=== PATIENT | female | born 1970 | race Caucasian/White ===

== ENCOUNTER 2016-05-02 10:00 | Inpatient (IN) | payer OTHER ==
[~2016-05-02] VITALS: Ht 170.2 cm; Wt 85.8 kg
[~2016-05-02 10:00] MED LIST: DPKSR/500 PO; HYDROCODONE/ACETAMOPHEN 5/325MG TAB PO PRN; IBUP-1050 PO; TRAMADOL HCL 50 MG TAB PO PRN; TRAZ50TA35 PO; ZLF/100 PO
[2016-05-02] MEDS ORDERED: FENTANYL CITRATE INJ 50 MCG/1 ML 2 ML VIAL IV STA (10:15)
[2016-05-02] MEDS ORDERED: ABL/5 PO (10:25)
[2016-05-02 10:32] LABS: BASO % 0.3 %; BASO ABS # 0.03 K/uL (0-0.2); COMPLETE YES; EOS % 2.2 %; HEMATOCRIT 38.9 % (37-47); IG% 0.6 %; LYMPH % 27.7 %; LYMPH ABS # 2.64 K/uL (1.2-3.4); MEAN CELL VOLUME 91.1 fL (80-100); MEAN CORPUSCULAR HEMOGLOBIN 31.1 pg (25-34); MEAN CORPUSCULAR HGB CONC 34.2 g/dl (32-36); MEAN PLATELET VOLUME 9.3 fL (7.4-10.4); MONO % 7.6 %; NEUT % 61.6 %; PLATELET COUNT 276 K/uL (130-400); RED BLOOD COUNT 4.27 M/uL (4.2-5.4); WHITE BLOOD COUNT 9.52 K/uL (4.8-10.8)
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
[2016-05-02 11:28] LABS: URINE APPEARANCE CLEAR (CLEAR); URINE BILIRUBIN NEG (NEG); URINE COLOR YELLOW; URINE NITRITE NEG (NEG); URINE SPECIFIC GRAVITY 1.002 (1.000-1.030); UROBILINOGEN NEG (NEG)
[2016-05-02] MEDS ORDERED: SODIUM CHLORIDE 0.9% 1000ML 1,000 ML IV STA (11:29)
[2016-05-02] MEDS ORDERED: HYDROmorphone INJ 1 MG/ML SYR IV STA (11:29)
[2016-05-02 11:31] LABS: MANUAL MICROSCOPIC REQUIRED? NO; REVIEW REQ? NO
[2016-05-02 11:33] LABS: ALT/SGPT 38 U/L (12-78); AST/SGOT 23 U/L (15-37); BLOOD UREA NITROGEN 9 mg/dl (7-18); BUN/CREATININE RATIO 10.2 (10-20); CALCIUM 8.7 mg/dl (8.5-10.1); CARBON DIOXIDE 26 mmol/L (21-32); CHLORIDE 112 mmol/L (98-107); CREATININE 0.91 mg/dl (0.60-1.20); GLUCOSE 90 mg/dl (70-99); POTASSIUM 4.4 mmol/L (3.5-5.1); SODIUM 145 mmol/L (136-145)
[2016-05-02 11:42] LABS: ALKALINE PHOSPHATASE 48 U/L (45-117)
[2016-05-02] MEDS ORDERED: GADAVIST IV PRN (13:15)
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
[2016-05-02] MEDS ORDERED: MAGNESIUM HYDROXIDE SUSP 30 ML UDC PO PRN (16:15)
[2016-05-02] MEDS ORDERED: MoRPHine SULFATE 2 MG/ML CARP IV PRN (16:15)
[2016-05-02] MEDS ORDERED: BISACODYL 10 MG SUPP PR PRN (16:15)
[2016-05-02] MEDS ORDERED: ALUMINUM/MAGNESIUM/SIMETH (MAALOX MAX) 30 ML UDC PO PRN (16:15)
[2016-05-02] MEDS ORDERED: DiphenhydrAMINE HCL 50 MG/ML VIAL IV PRN (16:15)
[2016-05-02] MEDS ORDERED: PROMETHAZINE HCL INJ 12.5 MG in SODIUM CHLORIDE 0.9% 50ML 50 ML IV PRN (16:15)
[2016-05-02] MEDS ORDERED: MoRPHine SULFATE 4 MG/ML 1 ML CARP\\VIAL IV PRN (16:15)
[2016-05-02] MEDS ORDERED: ZOLPIDEM TARTRATE 5 MG TAB PO PRN (16:15)
[2016-05-02] MEDS ORDERED: LORAZEPAM 2 MG/ML 1 ML VIAL IV PRN ×2 (16:15)
[2016-05-02] MEDS ORDERED: ONDANSETRON INJ 2 MG/ML 2 ML VIAL IV PRN (16:15)
[2016-05-02] MEDS ORDERED: ACETAMINOPHEN 325 MG TAB PO PRN (16:15)
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
[2016-05-02 17:37] VITALS: BP 107/71; PULSE 70; TEMP 36.5; O2SAT 94; Ht 170.2 cm; Wt 85.8 kg
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
[2016-05-02] MEDS ORDERED: LORAZEPAM INJ 0.5 MG in SYRINGE 0.75 ML IV PRN (18:00)
[2016-05-02] MEDS ORDERED: LORAZEPAM INJ 1 MG in SYRINGE 0.5 ML IV PRN (18:00)
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
[2016-05-02] MEDS ORDERED: INFLUENZA VIRUS QUAD VACCINE 0.5 ML SYR IM. ONE (20:15)
[2016-05-02] MEDS ORDERED: INFLUENZA ADMINISTRATION CHARGE ONE (20:15)
[2016-05-02] MEDS: DOCUSATE SODIUM 100 MG CAP PO SCH (20:34)
[2016-05-02] MEDS: DIVALPROEX 500 MG EXTENDED RELEASE TAB PO SCH (20:34)
[2016-05-03] VITALS (7 sets, daily range): BP systolic 95–126; BP diastolic 63–80; PULSE 71–89; TEMP 36.6–36.9; O2SAT 85–95
[2016-05-03 07:53] LABS: BASO % 0.3 %; BASO ABS # 0.03 K/uL (0-0.2); COMPLETE YES; EOS % 1.7 %; HEMATOCRIT 33.3 % (37-47); IG% 0.2 %; LYMPH % 19.1 %; LYMPH ABS # 1.84 K/uL (1.2-3.4); MEAN CELL VOLUME 88.8 fL (80-100); MEAN CORPUSCULAR HEMOGLOBIN 30.9 pg (25-34); MEAN CORPUSCULAR HGB CONC 34.8 g/dl (32-36); MEAN PLATELET VOLUME 8.5 fL (7.4-10.4); MONO % 7.8 %; NEUT % 70.9 %; PLATELET COUNT 227 K/uL (130-400); RED BLOOD COUNT 3.75 M/uL (4.2-5.4); WHITE BLOOD COUNT 9.63 K/uL (4.8-10.8)
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
[2016-05-03 08:08] LABS: PROTHROMBIN TIME (PATIENT) 10.3 SECONDS (9.0-12.0)
[2016-05-03 08:34] LABS: CALCIUM 8.3 mg/dl (8.5-10.1); CREATININE 0.82 mg/dl (0.60-1.20); POTASSIUM 4.3 mmol/L (3.5-5.1)
[2016-05-03] MEDS: DIVALPROEX 500 MG EXTENDED RELEASE TAB PO SCH ×2 (09:50→21:07)
[2016-05-03] MEDS: ARIPIprazole TAB 5 MG TAB PO SCH (09:50)
[2016-05-03] MEDS: SERTRALINE HCL 100 MG TAB PO SCH (09:51)
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
[2016-05-03] MEDS: DOCUSATE SODIUM 100 MG CAP PO SCH ×2 (10:55→21:00)
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
[2016-05-03] MEDS ORDERED: ENOXAPARIN 40 MG/0.4 ML SYR SQ ONE (21:15)
[2016-05-04 07:42] VITALS: BP 98/60; PULSE 79; TEMP 36.3; O2SAT 94
[2016-05-04] MEDS: DIVALPROEX 500 MG EXTENDED RELEASE TAB PO SCH (09:23)
[2016-05-04] MEDS: ARIPIprazole TAB 5 MG TAB PO SCH (09:23)
[2016-05-04] MEDS: SERTRALINE HCL 100 MG TAB PO SCH (09:23)
[2016-05-04 15:00] VITALS: BP 108/72; PULSE 87; TEMP 36.8; O2SAT 94
[2016-05-04] MEDS ORDERED: ULT50X PO (15:13)
[2016-05-04] MEDS ORDERED: IBUP-1450 PO (15:13)
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
[2016-05-04] MEDS ORDERED: PRLSR20 PO (15:28)
[2016-05-04 15:43] VITALS: BP 108/72; PULSE 87; TEMP 36.8; O2SAT 94
[2016-05-04] MEDS: DOCUSATE SODIUM 100 MG CAP PO SCH (15:55)
[2016-05-04] MEDS ORDERED: OXYC1TAB3 PO (16:21)
[2016-05-04 16:30] VITALS: O2SAT 94
[2016-05-04] MEDS ORDERED: ENOXAPARIN 40 MG/0.4 ML SYR SQ SCH (21:00)
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
== END 2016-05-04 19:00 | disposition home health service (06) | DRG 552 ==
LOC: ENRESERVDT → ENRESERVTM → EDBD 10:00 → C.ED 10:02 → C.MSN 16:13
PROVIDERS: ADMIT Hospitalist; ATTEND Internal Medicine
PROC: 0T9B7ZZ Drainage of Bladder, Via Natural or Artificial Opening (ICD-10-PCS; principal; 2016-05-02)
DX: S32.018A Other fracture of first lumbar vertebra, initial encounter for closed fracture (principal); R20.2 Paresthesia of skin; R33.9 Retention of urine, unspecified; G40.909 Epilepsy, unspecified, not intractable, without status epilepticus; F32.9 Major depressive disorder, single episode, unspecified; F17.210 Nicotine dependence, cigarettes, uncomplicated; V48.5XXA Car driver injured in noncollision transport accident in traffic accident, initial encounter; Y92.410 Unspecified street and highway as the place of occurrence of the external cause; Z79.899 Other long term (current) drug therapy; Z80.7 Family history of other malignant neoplasms of lymphoid, hematopoietic and related tissues; Z82.49 Family history of ischemic heart disease and other diseases of the circulatory system; Z83.6 Family history of other diseases of the respiratory system

== ENCOUNTER → 2017-10-14 | Outpatient (CLI) | payer OTHER ==
[~2017-10-14] MED LIST changes: -HYDROCODONE/ACETAMOPHEN 5/325MG TAB PO PRN; -IBUP-1050 PO; -TRAMADOL HCL 50 MG TAB PO PRN; -TRAZ50TA35 PO; -ZLF/100 PO
--- NOTE | 2017-10-14 14:45 | DIAGNOSTIC IMAGING REPORT ---
CHEST 2 VIEWS ROUTINE HISTORY: 47 years-old Female Z01.818 Preoperative [id number] preoperative exam. No acute chest complaints COMPARISON: Chest radiograph 08/14/2017 TECHNIQUE: PA and lateral views of the chest FINDINGS: Cardiomediastinal and hilar silhouettes are within normal limits. No pneumothorax, pleural effusion, focal airspace consolidation or overt pulmonary edema. Bones of the chest appear grossly intact. IMPRESSION: No acute process. The above report was generated using voice recognition software. It may contain grammatical, syntax or spelling errors. Electronically signed by: Savage Chisholm M.D. 10/14/2017 2:44 PM Dictated Date/Time: 10/14/2017 2:43 PM
[2017-10-14 16:36] LABS: BASO % 0.4 %; BASO ABS # 0.04 K/uL (0-0.2); EOS % 1.5 %; EOS ABS # 0.15 K/uL (0-0.5); HEMOGLOBIN 13.9 g/dL (12.0-16.0); IG# 0.02 K/uL (0.00-0.02); LYMPH % 23.7 %; LYMPH ABS # 2.39 K/uL (1.2-3.4); MEAN CELL VOLUME 91.1 fL (80-100); MEAN CORPUSCULAR HEMOGLOBIN 30.9 pg (25-34); MEAN CORPUSCULAR HGB CONC 33.9 g/dl (32-36); MEAN PLATELET VOLUME 10.3 fL (7.4-10.4); MONO % 7.1 %; MONO ABS # 0.72 K/uL (0.11-0.59); NEUT % 67.1 %; NEUT ABS # 6.75 K/uL (1.4-6.5); PLATELET COUNT 268 K/uL (130-400); RED CELL DISTRIBUTION WIDTH CV 13.1 % (11.5-14.5); RED CELL DISTRIBUTION WIDTH SD 43.6 fL (36.4-46.3); WHITE BLOOD COUNT 10.07 K/uL (4.8-10.8)
[2017-10-14 16:41] LABS: PTT PATIENT 26.6 SECONDS (21.0-31.0)
[2017-10-14 16:58] LABS: POTASSIUM 3.8 mmol/L (3.5-5.1)
== END | disposition home or self-care (01) ==
LOC: C.RAD 14:07
DX: Z01.818 Encounter for other preprocedural examination (principal)

== ENCOUNTER → 2017-10-23 | Day surgery (SDC) | payer OTHER ==
[2017-10-14 11:10] VITALS: Ht 170.2 cm; Wt 67.7 kg
[~2017-10-23] VITALS: Ht 170.2 cm; Wt 67.7 kg
[~2017-10-23] MED LIST changes: +ATROPINE SULFATE 0.1 MG/ML 5ML SYR IV PRN; +BACITRACIN OINT 15 GM TUBE ONE; +CEFAZOLIN 2000MG IV PUSH 15 ML IV SCH; +DEXAMETHASONE SOD INJ 4 MG/ML VIAL ONE; +EpHEDrine SULFATE INJ 50 MG/ML AMP IV PRN; +FENTANYL CITRATE INJ 50 MCG/1 ML 2 ML VIAL IV PRN; +FENTANYL CITRATE INJ 50 MCG/1 ML 2 ML VIAL ONE; +FLUMAZENIL 0.1 MG/1 ML 10 ML VIAL IV PRN; +HYDROCODONE/ACETAMIN 5/325MG TAB PO PRN; +HYDROmorphone INJ 2 MG/ML SYR/VIAL IV PRN; +LABETALOL HCL IV 5 MG/ML 20ML IV PRN; +LACTATED RINGER'S 1000ML 1,000 ML IV SCH; +LIDOCAINE HCL 2% 2 ML VIAL (20MG/ML) ONE; +LIDOCAINE/EPINEPHRINE 1% 20 ML VIAL ONE; +MEPERIDINE HCL 25 MG/ML CARP IV PRN; +MIDAZOLAM HCL 1 MG/ML 2ML VIAL ONE; +NALOXONE HCL 0.4 MG/1 ML VIAL/CARP IV PRN; +ONDANSETRON INJ 2 MG/ML 2 ML VIAL IV PRN; +ONDANSETRON INJ 2 MG/ML 2 ML VIAL ONE; +PHENYLEPHRINE 100MCG/ML 5ML SYR IV PRN; +PROPOFOL IV EMULSION 10 MG/ML 20 ML VIAL ONE; +SURGICEL ABSORB HEMOSTAT 2IN X 14IN TOP ONE; +THROMBIN 5000 UNITS KIT ONE
--- NOTE | 2017-10-23 12:24 | History & Physical Bridge - SC ---
H&P Re-Evaluation Bridge Note: I have examined the patient, reviewed the History & Physical and in the interval since the performance of the History & Physical I have noted the following changes of clinical significance: No changes noted
--- NOTE | 2017-10-23 13:48 | [facility] Operative Report ---
Operative Report Operative Date Oct 23, 2017. Pre-Operative Diagnosis Neck Mass Post-Operative Diagnosis Same Procedure(s) Performed Left Submental Lymph Node Excisional Biopsy Surgeon Dr. Lozano Adapted Physical Education Aide Surgeon(s) Tonya Christie PA-C Estimated Blood Loss 5ML Findings ~8MM LEFT SUBMENTAL LYMPH NODE Specimens A.) Left Submental Lymph Node Anesthesia Type General I attest to the content of the Intraoperative Record and any orders documented therein. Any exceptions are noted below.
--- NOTE | 2017-10-23 13:50 | Discharge Instructions ---
Discharge Instructions Date of Service Oct 23, 2017. Admission Reason for Admission: Neck Mass Discharge Discharge Diagnosis / Problem: SAME Discharge Goals Goal(s): Diagnostic testing Activity Recommendations Activity Limitations: as noted below 1. LIGHT ACTIVITY FOR 2 WEEKS 2. NO DRIVING WHILE ON NORCO . Current Hospital Diet Patient's current hospital diet: Discharge Diet Recommended Diet: Regular Diet Procedures Procedures Performed: Left Submental Lymph Node Excisional Biopsy Pending Studies Studies pending at discharge: no Medical Emergencies . Who to Call and When: Medical Emergencies: If at any time you feel your situation is an emergency, please call 911 immediately. . Non-Emergent Contact Non-Emergency issues call your: Surgeon . . "Provider Documentation" section prepared by Mario Lozano. .
--- NOTE | 2017-10-23 14:28 | OPERATIVE REPORT ---
DATE OF OPERATION: 10/23/2017 PREOPERATIVE DIAGNOSIS: Left submental lymphadenopathy. POSTOPERATIVE DIAGNOSIS: Left submental lymphadenopathy. PROCEDURE: Excisional biopsy of left submental lymph node. SURGEON: Mario Lozano MD ART HANDLER: Teagan Christie PA-C ESTIMATED BLOOD LOSS: 5 mL. FINDINGS: An 8 mm left submental lymph node with mild inflammation surrounding the lymph node. SPECIMENS: Left submental lymph node sent fresh for pathological assessment to rule out lymphoma. DRAINS: None. COMPLICATIONS: None. INDICATIONS FOR THE PROCEDURE: The patient is a 47-year-old female, heavy smoker with a family history of lymphoma who developed left submental lymphadenopathy for which her primary care physician had ordered a CT scan of the neck which revealed a 1.3 cm left submental lymph node as well as an approximately 8 mm lymph node inferior to that just superior and lateral to the hyoid bone. An ultrasound-guided fine needle aspiration biopsy of this lymph node came back as a likely benign reactive lymph node. However, the patient continued weight loss, fatigue, and night sweats worrisome for possible lymphoma. Options including serial observation and serial imaging versus excisional biopsy were discussed with the patient and she opted for excisional biopsy. She presents for the above-mentioned procedure on an outpatient elective basis. DESCRIPTION OF PROCEDURE: After informed consent had been obtained from the patient, the patient was wheeled to the operating room and placed on the operating room table in the supine position. Monitors were placed. After induction of general anesthesia via laryngeal mask airway, the patient's head and neck were gently extended. A marking pen was used to outline the planned 2 cm incision in a natural skin crease just overlying the hyoid bone. 3 mL of 1% lidocaine with 1:100,000 epinephrine was used to inject the skin and subcutaneous tissues overlying the planned incision site. The skin of the neck was then prepped and draped in the usual sterile fashion. A #15 scalpel was then used to make the incision through the skin, subcutaneous tissue, and platysma. Dissection was carried down to the level of the hyoid bone. Just superolateral to this, there was a lymph node that appeared to be inflamed and stuck to the surrounding tissue. This was removed using a combination of blunt and sharp dissection as well as a Harmonic scalpel. An excisional biopsy of approximately 8 mm submental lymph node was then undertaken and this was sent off fresh for pathological assessment to rule out lymphoma. The wound was copiously irrigated and suctioned. Bipolar electrocautery was used to achieve adequate hemostasis. Small pieces of Surgicel followed by topical spray thrombin were then placed for hemostatic effect. The platysma was then closed with several deep 4-0 Monocryl sutures. The skin was then closed with a simple running subcuticular 5-0 Monocryl suture. The incision was cleansed and dried. Dermabond was applied to the incision. This marked the end of the case. The patient tolerated the procedure well and there were no apparent complications. The patient had her laryngeal mask airway removed and was transferred to the recovery room in stable condition. I attest to the content of the Intraoperative Record and any orders documented therein. Any exception s are noted below.
--- NOTE | 2017-10-23 14:32 | Anesthesia Progress Nt - [facility] ---
Anesthesia Post Op Note Date & Time Oct 23, 2017 at 14:32 Vital Signs Pain Intensity: 0 Vital Signs Past 12 Hours Date Time Temp Pulse Resp B/P (MAP) Pulse Ox O2 Delivery O2 Flow Rate FiO2 10/23/17 14:05 36.4 65 24 131/85 98 Mask 6 10/23/17 09:47 36.6 75 20 136/83 (100) 99 Room Air Notes Mental Status: alert / awake / arousable, participated in evaluation Pt Amnestic to Procedure: Yes Nausea / Vomiting: adequately controlled Pain: adequately controlled Airway Patency, RR, SpO2: stable & adequate BP & HR: stable & adequate Hydration State: stable & adequate Anesthetic Complications: no major complications apparent
--- NOTE | 2017-10-23 14:52 | OPERATIVE REPORT ---
DATE OF OPERATION: 10/23/2017 Of note, Teagan Christie assisted with the entire case but then performed the 4-0 Monocryl and 5-0 Monocryl platysma and skin closure. I attest to the content of the Intraoperative Record and any orders documented therein. Any exception s are noted below.
[2017-10-23 14:54] VITALS: TEMP 36.4
[2017-10-23 15:30] VITALS: BP 111/74; PULSE 76; O2SAT 97
== END | disposition home or self-care (01) ==
LOC: X.SURG 09:26
DX: R59.9 Enlarged lymph nodes, unspecified (principal); F32.9 Major depressive disorder, single episode, unspecified; F17.200 Nicotine dependence, unspecified, uncomplicated; Z79.899 Other long term (current) drug therapy; Z91.018 Allergy to other foods; G40.909 Epilepsy, unspecified, not intractable, without status epilepticus